=== PATIENT | male | born 1965 | race Caucasian/White ===

== ENCOUNTER → 2017-02-10 | Outpatient (CLI) | payer MEDICARE, OTHER | LOC: RAD 10:55 | DX: M51.16 Intervertebral disc disorders with radiculopathy, lumbar region (principal); Z98.890 Other specified postprocedural states | CPT/HCPCS: 72050; 72110 ==

== ENCOUNTER → 2017-03-08 | Outpatient (CLI) | payer MEDICARE, OTHER | LOC: RAD 10:21 | DX: M79.672 Pain in left foot (principal); M79.671 Pain in right foot | CPT/HCPCS: 73630 ==

== ENCOUNTER 2020-11-08 20:04 | Observation (INO) | payer OTHER, MEDICARE ==
[~2020-11-08] VITALS: Ht 177.8 cm; Wt 81.6 kg
[~2020-11-08 20:04] MED LIST: NEURONTIN800 MG PO
[2020-11-08 20:32] LABS: HEMOGLOBIN 15.9 gm/dl (14.0-17.5); RED BLOOD COUNT 5.23 M/UL (4.20-5.50); WHITE BLOOD COUNT 14.1 K/UL (4.5-11.0)
[2020-11-08 20:37] LABS: BUN/CREATININE RATIO 28 (0-10)
[2020-11-09] MEDS ORDERED: FLOMAX 0.4 MG0.4 MG PO (09:38)
[2020-11-09] MEDS ORDERED: DRISDOL1250 MCG PO (09:38)
[2020-11-09] MEDS ORDERED: LOPRESSOR 25 MG25 MG PO (09:38)
[2020-11-09] MEDS ORDERED: LIPITOR20 MG PO (09:39)
[2020-11-09] MEDS ORDERED: VENTOLIN HFA 66.7 GM INH (09:39)
[2020-11-09] MEDS ORDERED: NITROSTAT0.4 MG SL (09:39)
[2020-11-09] MEDS ORDERED: PLAVIX 75 MG TA75 MG PO (09:40)
[2020-11-09] MEDS ORDERED: GLUCOPHAGE1000 MG PO (09:40)
[2020-11-09] MEDS ORDERED: IMDUR ER TAB 3030 MG PO (17:59)
[2020-11-09] MEDS ORDERED: ASPIRIN EC81 MG PO (17:59)
== END 2020-11-09 16:02 | disposition other institution (70) ==
LOC: ER1 20:04 → ZEROF 22:35 → M/S 22:35
PROVIDERS: Family Medicine; ADMIT Internal Medicine
DX: I25.119 Atherosclerotic heart disease of native coronary artery with unspecified angina pectoris (principal); I25.5 Ischemic cardiomyopathy; T82.855A Stenosis of coronary artery stent, initial encounter; I11.9 Hypertensive heart disease without heart failure; E78.5 Hyperlipidemia, unspecified; I49.3 Ventricular premature depolarization; J44.9 Chronic obstructive pulmonary disease, unspecified; E11.9 Type 2 diabetes mellitus without complications; I35.8 Other nonrheumatic aortic valve disorders; R79.89 Other specified abnormal findings of blood chemistry; R00.0 Tachycardia, unspecified; M54.5 Low back pain; G89.29 Other chronic pain; I25.2 Old myocardial infarction; F17.210 Nicotine dependence, cigarettes, uncomplicated; Z98.1 Arthrodesis status; Z98.890 Other specified postprocedural states; Z82.49 Family history of ischemic heart disease and other diseases of the circulatory system; Z79.899 Other long term (current) drug therapy; Z79.01 Long term (current) use of anticoagulants; Z79.84 Long term (current) use of oral hypoglycemic drugs; Z95.5 Presence of coronary angioplasty implant and graft; Z20.822 Contact with and (suspected) exposure to COVID-19; Z86.73 Personal history of transient ischemic attack (TIA), and cerebral infarction without residual deficits; Z88.5 Allergy status to narcotic agent
CPT/HCPCS: ECHO; 71045; 80053; 80061; 82550; 82553; 82962; 83874; 83880; 84484; 85025; 93005; 93306; 94664; 94760; 99285; G0378; U0002